=== PATIENT | female | born 1945 | race Caucasian/White ===

== ENCOUNTER 2023-06-23 08:13 | Day surgery (SDC) | payer MEDICARE ==
--- NOTE | 2023-06-22 11:07 | HP ---
DATE OF SURGERY: 06/23/2023 HISTORY OF PRESENT ILLNESS: The patient is an 78-year-old female presents with colonoscopy over ten years ago. She did not have any polyps. She does complain of a hemorrhoid. She did have a Cologuard two years ago that was okay. She has some constipation at times. She is a happy, healthy 78-year-old patient who would like to proceed with screening colonoscopy. PAST MEDICAL HISTORY: Hypertension. PAST SURGICAL HISTORY: Cholecystectomy. Hysterectomy. ALLERGIES: NKDA. MEDICATIONS: Atenolol, Tamie, [place]-3, potassium. FAMILY HISTORY: None. SOCIAL HISTORY: Negative. REVIEW OF SYSTEMS: CONSTITUTIONAL: Denies fever or chills. CHEST: Denies shortness of breath. CVS: Denies chest pain. ABDOMEN: Denies abdominal pain. PHYSICAL EXAMINATION: GENERAL: No acute distress. CHEST: Nonlabored. No shortness of breath. CVS: Regular rate and rhythm. ABDOMEN: Soft. IMPRESSION: Screening. PLAN: Colonoscopy with Dr. Rocael Taylor. As dictated by Rochelle Roberts NP.
[2023-06-23] MEDS: Lactated Ringers 1,000 ML IV SCH (08:49)
[2023-06-23 09:00] VITALS: RESP 18
[2023-06-23 09:28] LABS: ANION GAP 15.1 MEQ/L (5-15); Calcium 10.2 mg/dL (8.4-10.2); Creatinine 1 1.16 mg/dL (0.52-1.04); EST GLOMERULAR FILTRATION RATE 47.7 ML/MIN; Potassium 3.8 mmol/L (3.5-5.1)
[2023-06-23] MEDS ORDERED: DIPRIVAN 200 MG/20 ML IV ONE (10:40)
[2023-06-23 11:42] VITALS: BP 152/71; PULSE 74; TEMP 97.2; O2SAT 99
--- NOTE | 2023-06-24 07:57 | OP ---
SURGERY DATE/TIME: 06/23/2023 1045 PREOPERATIVE DIAGNOSIS: Screening. POSTOPERATIVE DIAGNOSIS: PROCEDURE: Colonoscopy. SURGEON: Rocael Taylor M.D. ANESTHESIA: MAC. COMPLICATIONS: None. CONDITION: Stable. INDICATION: The patient has history of polyps long ago. She did have a Cologuard four years ago that was normal. She has had a little trouble with a hemorrhoid here recently and she is concerned about her rectum and it was felt that endoscopic exam should be performed. DESCRIPTION OF PROCEDURE: She taken to endoscopy. Left lateral decubitus position. MAC sedation provided. Anal digital examination satisfactory. Scope introduced. The scope was able to navigate the first two turns and was basically at 20 cm. We came into the rectosigmoid junction and basically being two angles but at this point there was simply no lumen to advance. Had seen anterior to the left and scope could be lightly teased over there. The scope was withdrawn. There was nothing in the rectum. Nothing anally of substance. Will wait to order a barium enema. We will see her back in the office to discuss this with her. It was discussed with niece. The story is as above. PLAN: We will see her back in the office to see whether she wants a barium enema or not.
== END 2023-06-23 11:45 | disposition home or self-care (01) ==
LOC: SDC 08:13
PROVIDERS: ATTEND Surgery
DX: Z12.11 Encounter for screening for malignant neoplasm of colon (principal); Z09 Encounter for follow-up examination after completed treatment for conditions other than malignant neoplasm; Z86.010 Personal history of colon polyps; I10 Essential (primary) hypertension; K64.9 Unspecified hemorrhoids
CPT/HCPCS: 36415; 80048; 93005; 99100; J2704